=== PATIENT | female | born 1975 | race Hispanic/Latino ===

== ENCOUNTER 2022-09-10 09:14 | Emergency (ER) | payer OTHER ==
[~2022-09-10] VITALS: Ht 165.1 cm; Wt 204.1 kg
[2022-09-10 09:45] LABS: BASOPHILS % 0.5 % (0.0-1.0); EOSINOPHILS % 0.1 % (0.0-6.0); HEMOGLOBIN 14.6 g/dL (12.0-16.0); LYMPHOCYTES # (AUTO) 2.8 (1.0-3.2); LYMPHOCYTES % 32.7 % (18.0-39.1); MEAN CORPUSCULAR HEMOGLOBIN 29.9 pg (28-32); MEAN CORPUSCULAR HGB CONC 32.4 g/dL (31-35); MEAN CORPUSCULAR VOLUME 92.2 fL (81-99); MONOCYTES # (AUTO) 0.6 (0.2-0.8); MONOCYTES % 6.6 % (4.4-11.3); NEUTROPHILS # (AUTO) 5.1 (2.1-6.9); NEUTROPHILS % 59.9 % (38.7-80.0); PLATELET COUNT 250 x10e3/uL (140-360); RED BLOOD COUNT 4.88 x10e6/uL (3.6-5.1); RED CELL DISTRIBUTION WIDTH 13.3 % (11.7-14.4)
[2022-09-10 10:08] LABS: ALANINE AMINOTRANSFERASE 23 IU/L (0-55); ALBUMIN 3.4 g/dL (3.5-5.0); ALKALINE PHOSPHATASE 100 IU/L (40-150); ANION GAP 13.1 mmol/L (8-16); BLOOD UREA NITROGEN 18 mg/dL (7-26); BUN/CREATININE RATIO 29 (6-25); CALCIUM 8.9 mg/dL (8.4-10.2); CARBON DIOXIDE 26 mmol/L (22-29); CHLORIDE 105 mmol/L (98-107); CREATININE, SERUM 0.62 mg/dL (0.57-1.11); GLUCOSE 146 mg/dL (74-118); MAGNESIUM 1.7 MG/DL (1.3-2.1); POTASSIUM 4.1 mmol/L (3.5-5.1); SODIUM 140 mmol/L (136-145)
[2022-09-10] MEDS ORDERED: MEDROL4 M2 PO (12:16)
[2022-09-10] MEDS ORDERED: ALBUTEROL0.63 MG/3 NEB (12:25)
== END 2022-09-10 12:46 | disposition home or self-care (01) ==
LOC: ER 09:38
DX: R06.00 Dyspnea, unspecified (principal); J45.909 Unspecified asthma, uncomplicated; R05.9 Cough, unspecified; Z20.822 Contact with and (suspected) exposure to COVID-19
CPT/HCPCS: 36415; 71045; 80053; 83735; 83880; 84484; 85025; 93005; 99284; U0002

== ENCOUNTER 2024-05-08 10:40 | Emergency (ER) | payer BC ==
[~2024-05-08] VITALS: Ht 165.1 cm; Wt 166.6 kg
[~2024-05-08 10:40] MED LIST: ALBUTEROL0.63 MG/3 NEB; MEDROL4 M2 PO
[2024-05-08 10:43] VITALS: PULSE 107; RESP 20; TEMP 98
[2024-05-08] MEDS ORDERED: DEXAMETHASONE SOD PHOS INJ 4 MG/ML SDV ONE (11:49)
[2024-05-08] MEDS: DEXAMETHASONE SOD PHOS 10 MG/1 ML VIAL IV ONE (11:54)
[2024-05-08] MEDS: MECLIZINE HCL 12.5 MG TAB PO ONE (11:54)
[2024-05-08] MEDS: ONDANSETRON HCL INJ 2MG/ML 2ML 2 MG/ML VIAL IV STA (11:55)
[2024-05-08] MEDS: SODIUM CHLORIDE 0.9% 1000ML 1,000 ML IV ONE (11:55)
[2024-05-08] MEDS ORDERED: ONDANSETRON ODT4 MG PO (12:02)
[2024-05-08] MEDS ORDERED: MECLIZINE HCL12.5 MG PO (12:02)
[2024-05-08 13:24] VITALS: BP 133/81; PULSE 80; RESP 20; TEMP 97.8; O2SAT 96
== END 2024-05-08 12:50 | disposition home or self-care (01) ==
LOC: FSED 10:43
DX: H92.02 Otalgia, left ear (principal); H81.393 Other peripheral vertigo, bilateral; E66.01 Morbid (severe) obesity due to excess calories; E11.65 Type 2 diabetes mellitus with hyperglycemia; J45.909 Unspecified asthma, uncomplicated; R94.31 Abnormal electrocardiogram [ECG] [EKG]
CPT/HCPCS: 80053; 81003; 81025; 84484; 85025; 93005; 99283; J1100 ×2; J2405; J8597